=== PATIENT | female | born 1995 | race Two or more races ===

== ENCOUNTER 2019-01-25 10:19 | Outpatient (CLI) | payer OTHER ==
[~2019-01-25] VITALS: Ht 154.9 cm; Wt 58.1 kg
[2019-01-25] MEDS ORDERED: FLONASE16 GM NASAL (13:16)
[2019-01-25] MEDS ORDERED: CEFUROXIME500 MG PO (13:16)
[2019-01-25] MEDS ORDERED: ZYRTEC10 MG PO (13:16)
== END 2019-01-25 14:26 | disposition home or self-care (01) ==
LOC: OFIC 805 10:19
DX: J31.0 Chronic rhinitis (principal); J32.4 Chronic pansinusitis; J34.2 Deviated nasal septum; J34.3 Hypertrophy of nasal turbinates

== ENCOUNTER → 2019-11-17 17:05 | Outpatient (CLI) | payer OTHER ==
[~2019-11-17 17:05] MED LIST: CEFUROXIME500 MG PO; FLONASE16 GM NASAL; ZYRTEC10 MG PO
== END | disposition home or self-care (01) ==
LOC: LAB 17:05
DX: J11.1 Influenza due to unidentified influenza virus with other respiratory manifestations (principal)

== ENCOUNTER 2020-08-01 14:16 | Outpatient (CLI) | payer OTHER | END 2020-08-01 17:42 | disposition home or self-care (01) | LOC: SONOGRAMA 14:16 | PROVIDERS: ATTEND Specialist | DX: R10.2 Pelvic and perineal pain (principal) ==

== ENCOUNTER → 2020-08-08 | Outpatient (CLI) | payer OTHER | END | disposition home or self-care (01) | LOC: PPH VACUNA 08:00 | DX: Z23 Encounter for immunization (principal) ==

== ENCOUNTER 2021-04-28 14:24 | Outpatient (CLI) | payer OTHER | END 2021-04-28 14:28 | disposition home or self-care (01) | LOC: LAB 14:24 | PROVIDERS: ATTEND Specialist | DX: E22.1 Hyperprolactinemia (principal) ==

== ENCOUNTER → 2021-04-29 09:57 | Outpatient (CLI) | payer OTHER | END | disposition home or self-care (01) | LOC: LAB 09:57 | PROVIDERS: ATTEND Specialist | DX: E03.9 Hypothyroidism, unspecified (principal) ==

== ENCOUNTER 2021-05-01 14:17 | Outpatient (CLI) | payer OTHER | END 2021-05-01 14:27 | disposition home or self-care (01) | LOC: SONOGRAMA 14:17 → MAMO-SONO 14:30 | PROVIDERS: ATTEND Specialist | DX: N64.3 Galactorrhea not associated with childbirth (principal) ==

== ENCOUNTER → 2021-05-22 09:09 | Outpatient (CLI) | payer OTHER | END | disposition home or self-care (01) | LOC: MAMO-SONO 09:00 | PROVIDERS: ATTEND Specialist | DX: N60.11 Diffuse cystic mastopathy of right breast (principal); N60.12 Diffuse cystic mastopathy of left breast; Z80.3 Family history of malignant neoplasm of breast; N64.9 Disorder of breast, unspecified; Z12.31 Encounter for screening mammogram for malignant neoplasm of breast; Z87.898 Personal history of other specified conditions ==

== ENCOUNTER 2021-08-13 08:00 | Outpatient (CLI) | payer OTHER | END 2021-08-13 08:30 | disposition home or self-care (01) | LOC: PPH VACUNA 08:00 | PROVIDERS: ATTEND Emergency Medicine Pediatric Emergency Medicine | DX: Z23 Encounter for immunization (principal) ==

== ENCOUNTER 2021-10-20 13:13 | Outpatient (CLI) | payer OTHER | END 2021-10-20 13:14 | disposition home or self-care (01) | LOC: SONOGRAMA 13:13 | PROVIDERS: ATTEND Surgery | DX: N60.11 Diffuse cystic mastopathy of right breast (principal); N60.12 Diffuse cystic mastopathy of left breast; N64.59 Other signs and symptoms in breast ==

== ENCOUNTER 2021-12-22 10:07 | Outpatient (CLI) | payer OTHER | END 2021-12-22 15:52 | disposition home or self-care (01) | LOC: LAB 10:07 | DX: U07.1 COVID-19 (principal) ==

== ENCOUNTER 2022-04-06 15:38 | Outpatient (CLI) | payer OTHER | END 2022-04-06 15:43 | disposition home or self-care (01) | LOC: RAD 15:38 | DX: M54.2 Cervicalgia (principal); M53.82 Other specified dorsopathies, cervical region ==

== ENCOUNTER 2022-08-12 14:08 | Outpatient (CLI) | payer OTHER | END 2022-08-12 14:10 | disposition home or self-care (01) | LOC: SONOGRAMA 14:08 | PROVIDERS: ATTEND Specialist | DX: N92.1 Excessive and frequent menstruation with irregular cycle (principal) ==

== ENCOUNTER 2022-09-08 16:00 | Outpatient (CLI) | payer OTHER | END 2022-09-08 16:05 | disposition home or self-care (01) | LOC: PPH VACUNA 16:00 | PROVIDERS: ATTEND Emergency Medicine Pediatric Emergency Medicine | DX: Z23 Encounter for immunization (principal) ==

== ENCOUNTER 2022-11-27 12:04 | Outpatient (CLI) | payer OTHER | END 2022-11-27 13:48 | disposition home or self-care (01) | LOC: SONOGRAMA 12:04 | PROVIDERS: ATTEND Surgery | DX: N60.11 Diffuse cystic mastopathy of right breast (principal); N60.12 Diffuse cystic mastopathy of left breast ==

== ENCOUNTER 2023-07-23 07:50 | Outpatient (CLI) | payer OTHER | END 2023-07-23 08:00 | disposition home or self-care (01) | LOC: PPH VACUNA 07:50 | PROVIDERS: ATTEND Emergency Medicine Pediatric Emergency Medicine | DX: Z23 Encounter for immunization (principal) | CPT/HCPCS: 90686; G0008 ==

== ENCOUNTER 2023-11-23 13:28 | Outpatient (CLI) | payer OTHER | END 2023-11-23 13:33 | disposition home or self-care (01) | LOC: SONOGRAMA 13:28 | PROVIDERS: ATTEND Surgery | DX: N60.11 Diffuse cystic mastopathy of right breast (principal); N60.12 Diffuse cystic mastopathy of left breast ==

== ENCOUNTER 2024-09-11 02:30 | Outpatient (CLI) | payer OTHER ==
[~2024-09-11 02:30] MED LIST changes: +ZITHROMAX200 MG PO
== END 2024-09-11 03:00 | disposition home or self-care (01) ==
LOC: PPH VACUNA 02:30
PROVIDERS: ATTEND Emergency Medicine Pediatric Emergency Medicine
DX: Z23 Encounter for immunization (principal)

== ENCOUNTER 2025-02-07 10:02 | Outpatient (CLI) | payer OTHER ==
[2025-02-07 10:56] LABS: HEMATOCRIT 40.9 % (36.0-45.00); HEMOGLOBIN 13.6 g/dL (12.0-15.00); MEAN CELL VOLUME 94.8 fL (80.00-100.00); MEAN CORPUSCULAR HEMOGLOBIN 31.5 pg (27.00-32.0); MEAN CORPUSCULAR HGB CONC 33.3 g/dl (32.0-36.0); PLATELET COUNT 220 K/uL (150-450); RED BLOOD COUNT 4.31 M/uL (4.00-6.00); RED CELL DISTRIBUTION WIDTH 13.1 % (11.5-14.5)
== END 2025-02-07 10:19 | disposition home or self-care (01) ==
LOC: LAB 10:02
DX: R50.9 Fever, unspecified (principal); R05.1 Acute cough

== ENCOUNTER 2025-05-22 06:50 | Outpatient (CLI) | payer OTHER ==
[2025-05-22 07:13] LABS: BASO % 0.7 % (0.1-1.2); EOS # 0.12 (0.04-0.54); EOS % 2.0 % (0.7-7.0); LYMPH # 1.62 (1.18-3.74); LYMPH % 27.0 % (19.3-53.1); MEAN PLATELET VOLUME 10.50 fl (9.4-12.4); MONO # 0.46 (0.24-0.82); MONO % 7.7 % (4.7-12.5); NEUT # 3.76 (1.56-6.13); NEUT % 62.4 % (34.0-71.1); RED CELL DISTRIBUTION WIDTH 11.9 % (11.6-14.4)
[2025-05-22 08:08] LABS: ALT/SGPT 28.0 U/L (12-78); AST/SGOT 15.0 U/L (15-37); BILIRUBIN TOTAL 0.39 mg/dL (0.3-1.2); BUN CREA RATIO 22.0 (7.0-25.0); CHOL HDL RATIO 2.8 (0-5.0); CREATININE SERUM 0.78 mg/dL (0.55-1.02); GFR 87.94; GLOBULINA 3.3 G/DL (2.4-3.5); GLUCOSE FASTING 87.0 mg/dL (65-100); HDL 61.0 mg/dl (40-60); LDL 85.0 mg/dl (0-130); OSMOLALITY SERUM 278.0 MOSM/KG (275-295); T4 TOTAL 8.84 UG/DL (4.8-13.9); TSH 2.29 uIU/mL (0.358-3.74); VLDL 23.0 (0-39)
== END 2025-05-22 06:52 | disposition home or self-care (01) ==
LOC: LAB 06:50
PROVIDERS: ATTEND Internal Medicine
DX: I11.9 Hypertensive heart disease without heart failure (principal); E78.2 Mixed hyperlipidemia; E11.9 Type 2 diabetes mellitus without complications; E03.9 Hypothyroidism, unspecified

== ENCOUNTER 2025-06-14 13:58 | Outpatient (CLI) | payer OTHER | END 2025-06-14 14:05 | disposition home or self-care (01) | LOC: SONOGRAMA 13:58 | PROVIDERS: ATTEND Specialist | DX: N92.6 Irregular menstruation, unspecified (principal) ==

== ENCOUNTER → 2025-06-27 06:55 | Outpatient (CLI) | payer OTHER ==
[2025-06-28 05:07] LABS: PROGESTERONA 17.3 ng/mL (.); PROLACTIN 38.7 ng/mL (4.8-33.4)
== END | disposition home or self-care (01) ==
LOC: LAB 06:55
PROVIDERS: ATTEND Specialist
DX: E22.1 Hyperprolactinemia (principal); N92.6 Irregular menstruation, unspecified; E28.1 Androgen excess

== ENCOUNTER 2025-07-09 09:47 | Outpatient (CLI) | payer OTHER | END 2025-07-09 09:48 | disposition home or self-care (01) | LOC: NUCLEAR 09:47 | PROVIDERS: ATTEND Internal Medicine | DX: R00.2 Palpitations (principal) ==

== ENCOUNTER 2025-08-03 08:05 | Outpatient (CLI) | payer OTHER | END 2025-08-03 13:00 | disposition home or self-care (01) | LOC: LAB 08:05 | PROVIDERS: ATTEND Specialist | DX: Z32.00 Encounter for pregnancy test, result unknown (principal); O09.71 Supervision of high risk pregnancy due to social problems, first trimester ==

== ENCOUNTER 2025-08-06 06:39 | Outpatient (CLI) | payer OTHER | END 2025-08-06 23:00 | disposition home or self-care (01) | LOC: LAB 06:39 | PROVIDERS: ATTEND Obstetrics & Gynecology | DX: O09.A1 Supervision of pregnancy with history of molar pregnancy, first trimester (principal) ==

== ENCOUNTER 2025-08-13 07:11 | Outpatient (CLI) | payer OTHER | END 2025-08-13 07:14 | disposition home or self-care (01) | LOC: LAB 07:11 | PROVIDERS: ATTEND Obstetrics & Gynecology | DX: O09.71 Supervision of high risk pregnancy due to social problems, first trimester (principal) ==

== ENCOUNTER 2025-08-29 06:57 | Outpatient (CLI) | payer OTHER ==
[2025-08-29 07:42] LABS: BASO % 0.5 % (0.1-1.2); EOS # 0.06 (0.04-0.54); EOS % 1.0 % (0.7-7.0); LYMPH # 1.23 (1.18-3.74); LYMPH % 19.9 % (19.3-53.1); MEAN PLATELET VOLUME 10.20 fl (9.4-12.4); MONO # 0.33 (0.24-0.82); MONO % 5.3 % (4.7-12.5); NEUT # 4.52 (1.56-6.13); NEUT % 73.0 % (34.0-71.1); RED CELL DISTRIBUTION WIDTH 11.4 % (11.6-14.4)
[2025-08-29 08:59] LABS: ALT/SGPT 25.0 U/L (12-78); AST/SGOT 14.0 U/L (15-37); BILIRUBIN TOTAL 0.34 mg/dL (0.3-1.2); BUN CREA RATIO 18.0 (7.0-25.0); CREATININE SERUM 0.62 mg/dL (0.55-1.02); GFR 113.8; GLOBULINA 3.1 G/DL (2.4-3.5); GLUCOSE FASTING 85.0 mg/dL (65-100); OSMOLALITY SERUM 276.0 MOSM/KG (275-295); T4 FREE 1.11 NG/ML (0.76-1.46); TSH 1.96 uIU/mL (0.358-3.74)
[2025-08-29 09:36] LABS: URINE APPEARANCE Clear; URINE BACTERIA 111.5 uL (0.0-1933); URINE BILIRRUBIN Negative (NEGATIVE); URINE BLOOD Negative; URINE COLOR Yellow; URINE EPITHELIAL CELLS 8.8 uL (0.0-38.8); URINE GLUCOSE Negative (NEGATIVE); URINE KETONE Negative (NEGATIVE); URINE LEUKOCYTE Negative; URINE NITRATE Negative; URINE PROTEIN Negative (NEGATIVE); URINE RBC 6.5 uL (0.0-20.8); URINE UROBILINOGEN 0.2 E.U./dl; URINE WBC 5.2 uL (0.0-23.2)
[2025-08-29 09:46] LABS: RH POSITIVE
[2025-08-29 09:49] LABS: URINE CAST 0.58 uL (0.0-1.40)
[2025-08-31 07:10] LABS: RUBELLA IGG 6.34 index (Immune >0.99); hav igm Negative (Negative); hep b c Negative (Negative); hep b s ag Negative (Negative)
[2025-08-31 11:07] LABS: VARICELLA ZOSTER VIRUS IGG Non Reactive (Non Reactive)
== END 2025-08-29 07:03 | disposition home or self-care (01) ==
LOC: LAB 06:57
PROVIDERS: ATTEND Obstetrics & Gynecology
DX: O09.91 Supervision of high risk pregnancy, unspecified, first trimester (principal)

== ENCOUNTER 2025-10-22 13:36 | Outpatient (CLI) | payer OTHER ==
[2025-10-22 14:12] LABS: URINE APPEARANCE Clear; URINE BILIRRUBIN Negative (NEGATIVE); URINE BLOOD Negative; URINE COLOR Dark Yellow; URINE GLUCOSE Negative (NEGATIVE); URINE KETONE 15 (NEGATIVE); URINE LEUKOCYTE Negative; URINE NITRATE Negative; URINE PROTEIN Negative (NEGATIVE); URINE UROBILINOGEN 0.2 E.U./dl
[2025-10-22 14:13] LABS: URINE BACTERIA 251.6 uL (0.0-1933); URINE CAST 0.14 uL (0.0-1.40); URINE EPITHELIAL CELLS 2.9 uL (0.0-38.8); URINE RBC 4.5 uL (0.0-20.8); URINE WBC 7.0 uL (0.0-23.2)
== END 2025-10-22 13:40 | disposition home or self-care (01) ==
LOC: LAB 13:36
PROVIDERS: ATTEND Obstetrics & Gynecology
DX: N39.0 Urinary tract infection, site not specified (principal)